=== PATIENT | male | born 1965 | race Caucasian/White ===

== ENCOUNTER 2017-06-08 05:19 | Day surgery (SDC) | payer MEDICAID ==
[~2017-06-08 05:19] MED LIST: COLACE50 MG/5 ML PO; CYCLOBENZAPRINE10 MG PO; MULTIPLE VITAMI1 TA1 PO; OXYCONTIN10 MG PO; ZANTAC300 MG PO
[2017-06-08] MEDS ORDERED: PERCOCET 5-3251 TAB PO (08:38)
[2017-06-08 08:57] VITALS: BP 136/84; BMI 30.1
--- NOTE | 2017-06-08 16:50 | NUR ---
PATIENT AMBULATES TO BATHROOM AND VOIDS LARGE AMOUNT IN TOILET. PIV DC'D WITH TIP INTACT. PATIENT DRESSING IN PERSONAL CLOTHING
--- NOTE | 2017-06-08 17:10 | NUR ---
DISCHARGE INSTRUCTIONS REVIEWED WITH PATIENT AND SPOUSE. DISCHARGED HOME VIA WHEELCHAIR TO PRIVATE VEHICLE WITH SPOUSE AND FRIEND
--- NOTE | 2017-06-10 09:17 | OP ---
PATIENT NAME: MONI MANDUJANO MEDICAL RECORD: [id number] :63 LOCATION:[facility] ADMISSION DATE: SURGEON: MARLEY GAXIOLA MD DATE OF OPERATION: 06/08/2017 PREOPERATIVE DIAGNOSES: Lumbar spinal stenosis with foraminal stenosis at L3-L4 and L4-L5, left. PROCEDURE: Lumbar laminectomy at L3-L4 and L4-L5 left with foraminotomy at L3-L4 left and L4-L5, left with METRx retractor and microscopic illumination. DESCRIPTION OF TECHNIQUE: After induction of general endotracheal anesthesia, the patient was rolled prone on chest and hip rolls. The lumbar spine was prepped and draped using the sterile fashion. Fluoroscopic x-ray and spinal needle localized the L4 pedicle. Next, a stab incision was created with #11 blade and series of dilators was used to advance the METRx retractor to the L4 pedicle. The METRx retractor was wanded superiorly to the L3-L4 interspace. A laminectomy was carried out with Midas-Gerard drill and microscope at this level. Next, the METRx retractor was wanded to the L4-L5 interspace. A laminectomy was carried out with Midas-Gerard drill and microscope as well. Hypertrophied ligamentum flavum was removed at L3-L4 and L4-L5 and foraminotomies were carried out at L3-L4 and L4-L5 on the left as well under microscopic illumination with Cloward rongeurs. Following this, the dura and the nerve roots are decompressed well at L3, L4, and L5. Meticulous hemostasis was maintained throughout the wound. The wound was irrigated with copious amounts of Ancef irrigant solution. The retractor was removed. The fascia was closed with 2-0 Vicryl suture, the subdermal layer was closed with 3-0 Vicryl suture. The skin was reapproximated with Dermabond mesh and glue. The patient was awakened in good condition and taken to recovery. All counts were reported as correct. Estimated blood loss was minimal. TRANSINT:[id number] Voice Confirmation ID: [id number] DOCUMENT ID: [id number] MARLEY GAXIOLA MD at 0917 CC: [id number] DICTATION DATE: 06/09/17 0739 SUPERVISOR PIPELINES: 06/09/17 1214 DEP SDC 06/08/17 [facility] [address] [place] [address]
== END 2017-06-08 17:10 | disposition home or self-care (01) ==
LOC: D.OPS 05:19 → D.PAN 09:30 → D.OPS 09:30
DX: M54.16 Radiculopathy, lumbar region (principal); M48.061 Spinal stenosis, lumbar region without neurogenic claudication; M54.5 Low back pain; Z01.812 Encounter for preprocedural laboratory examination

== ENCOUNTER 2018-01-19 20:30 | Emergency (ER) | payer MEDICAID ==
[~2018-01-19 20:30] MED LIST changes: +PERCOCET 5-3251 TAB PO
[2018-01-19 21:26] LABS: BASOPHILS 0.3 % (0-2); EOSINOPHILS 1.5 % (0-7); HEMATOCRIT 43.3 % (42.0-54.0); HEMOGLOBIN 14.5 g/dL (13.5-17.5); IMMATURE GRANULOCYTES 0.3 % (0-5); LYMPHOCYTES 44.8 % (15-50); MCHC 33.5 g/dL (31.0-37.0); MCV 92.7 fL (80.0-100.0); MONOCYTES 7.7 % (2-11); NEUTROPHILS 45.4 % (40-80); RBC 4.67 10x6/uL (4.20-6.10); RDW 12.3 % (11.5-14.5); WBC 6.6 10x3/uL (4.8-10.8)
[2018-01-19 21:28] LABS: APPEARANCE CLEAR (CLEAR); BILIRUBIN NEGATIVE (NEGATIVE); COLOR YELLOW (YELLOW); GLUCOSE NEGATIVE (NEGATIVE); KETONE NEGATIVE (NEGATIVE); NITRITE NEGATIVE (NEGATIVE); PROTEIN NEGATIVE (NEGATIVE); SPECIFIC GRAVITY 1.015 (1.005-1.020); UROBILINOGEN NORMAL (NORMAL)
[2018-01-19 21:28] LABS: PLATELET COUNT 224 10x3/uL (130-400)
[2018-01-19 21:45] LABS: ALBUMIN 3.7 g/dL (3.4-5.0); BILIRUBIN - TOTAL 0.7 mg/dL (0.2-1.3); CALCIUM 8.8 mg/dL (8.5-10.1); CREATININE - SERUM 1.1 mg/dL (0.6-1.3); PROTEIN - SERUM 7.2 g/dL (6.4-8.2)
[2018-01-19 22:14] LABS: AMYLASE - SERUM 85 U/L (25-115); LIPASE 309 U/L (73-393)
== END 2018-01-20 02:15 | disposition home or self-care (01) ==
LOC: D.ER 20:30
PROVIDERS: Family Medicine
DX: R10.12 Left upper quadrant pain (principal)

== ENCOUNTER 2018-01-21 23:40 | Emergency (ER) | payer MEDICARE ==
[2018-01-22 01:02] LABS: BASOPHILS 0.2 % (0-2); HEMATOCRIT 39.3 % (42.0-54.0); HEMOGLOBIN 13.2 g/dL (13.5-17.5); IMMATURE GRANULOCYTES 0.2 % (0-5); LYMPHOCYTES 42.4 % (15-50); MCH 30.5 pg (26.0-34.0); MCHC 33.6 g/dL (31.0-37.0); MCV 90.8 fL (80.0-100.0); MEAN PLATELET VOLUME 10.6 fL (7.4-10.4); MONOCYTES 6.4 % (2-11); NEUTROPHILS 48.8 % (40-80); PLATELET COUNT 202 10x3/uL (130-400); RBC 4.33 10x6/uL (4.20-6.10); RDW 12.2 % (11.5-14.5); WBC 6.6 10x3/uL (4.8-10.8)
[2018-01-22 01:08] LABS: UDS - AMPHET NEGATIVE QUAL (NEGATIVE); UDS - BARB NEGATIVE QUAL (NEGATIVE); UDS - BENZO NEGATIVE QUAL (NEGATIVE); UDS - COCAINE NEGATIVE QUAL (NEGATIVE); UDS - OPIATE NEGATIVE QUAL (NEGATIVE); UDS - PCP NEGATIVE QUAL (NEGATIVE); UDS - THC NEGATIVE QUAL (NEGATIVE)
[2018-01-22 01:38] LABS: ALBUMIN 3.4 g/dL (3.4-5.0); ALKALINE PHOSPHATASE 72 U/L (46-116); ALT (SGPT) 40 U/L (10-68); CALC OSMOLALITY 279 mosm/kg (275-300); CALCIUM 8.5 mg/dL (8.5-10.1); CARBON DIOXIDE 27.8 mmol/L (21.0-32.0); CHLORIDE - SERUM 106 mmol/L (98-107); CREATININE - SERUM 1.1 mg/dL (0.6-1.3); GLUCOSE 96 mg/dL (74-106); PROTEIN - SERUM 6.7 g/dL (6.4-8.2); SODIUM 139 mmol/L (136-145); UREA NITROGEN 19 mg/dL (7-18); eGFR NON AFRICAN AMERICAN 74 mL/min (90-120)
[2018-01-22 01:42] LABS: AMYLASE - SERUM 89 U/L (25-115); LIPASE 366 U/L (73-393); THYROID STIMULATING HORMONE 7.54 uIU/mL (0.36-3.74); TROPONIN-I < 0.017 ng/mL (0.000-0.060)
== END 2018-01-22 04:13 | disposition home or self-care (01) ==
LOC: D.ER 23:40
PROVIDERS: Family Medicine
DX: F11.23 Opioid dependence with withdrawal (principal); E03.9 Hypothyroidism, unspecified

== ENCOUNTER → 2018-07-25 14:23 | Outpatient (CLI) | payer MEDICARE | END | disposition home or self-care (01) | LOC: D.LABREF 14:23 | DX: M17.11 Unilateral primary osteoarthritis, right knee (principal); Z11.8 Encounter for screening for other infectious and parasitic diseases ==

== ENCOUNTER → 2018-07-26 12:04 | Outpatient (CLI) | payer MEDICARE | END | disposition home or self-care (01) | LOC: D.LABREF 12:04 | DX: M17.12 Unilateral primary osteoarthritis, left knee (principal); Z11.8 Encounter for screening for other infectious and parasitic diseases ==

== ENCOUNTER 2018-08-17 10:00 | Inpatient (IN) | payer MEDICARE ==
[~2018-08-17] VITALS: Ht 182.9 cm; Wt 97.3 kg
--- NOTE | ~2018-08-17 | MORECARE ---
CASE MANAGEMENT DISCHARGE SUMMARY PATIENT: MONI MANDUJANO JOSEPH UNIT: [id number] ADM DATE: 08/23/18 AGE: 53 : 63 SEX: M ROOM/BED: D.2212 AUTHOR: KAREN ESPINOZA PHYSICIAN: REFERRING PHYSICIAN: MENDEL BOB DO DATE OF SERVICE: 08/24/18 Discharge Plan Patient Name: MONI MANDUJANO Facility: [facility]:[place] : 1965 Planned Disposition: Anticipated Discharge Date: Discharge Date: Expected LOS: Initial Reviewer: [email or web address] Initial Review Date: 08/23/2018 Generated: 08/24/18 12:19 pm Comments DCP- Discharge Planning Updated by [email or web address]: Jeanette Dailey on 08/24/18 10:[address] PATIENT IS CONCERNED ABOUT PT AND THE HOLIDAYS. OP PT IS SET UP FOR WednesdayAug AT 7:45 AM, SPOKE WITH HUMBERTO AT [facility] IN [place] CM WILL CONTINUE TO FOLLOW AND ASSIST WITH DC PLANNING External [facility]iders [facility] Next Contact Date: Service Request Date: Service Type: Resolution: Reviewer: Comments: Patient Name: MONI MANDUJANO Page [phone] at 1120 All edits/amendments must be made on the electronic document DICTATION DATE: 08/24/18 111 SUPERVISOR LANDSCAPE: LA NENA 08/24/18 1119 RPT#: [id number] DC DATE: STATUS: ADM IN [facility] [address] [place] [address] END OF REPORT
--- NOTE | ~2018-08-17 | MORECARE ---
CASE MANAGEMENT DISCHARGE SUMMARY PATIENT: MONI MANDUJANO UNIT: [id number] ADM DATE: 08/23/18 AGE: 53 : 63 SEX: M ROOM/BED: D.2212 AUTHOR: KAREN ESPINOZA PHYSICIAN: REFERRING PHYSICIAN: MENDEL BOB DO DATE OF SERVICE: 08/25/18 Discharge Plan Patient Name: MONI MANDUJANO Facility: [facility]:[place] : 1965 Planned Disposition: Home Anticipated Discharge Date: Discharge Date: Expected LOS: Initial Reviewer: [email or web address] Initial Review Date: 08/23/2018 Generated: 08/25/18 1:17 pm Comments DCP- Discharge Planning Updated by [email or web address]: Jeanette Dailey on 08/24/18 10:[address] PATIENT IS CONCERNED ABOUT PT AND THE HOLIDAYS. OP PT IS SET UP FOR WednesdayAug AT 7:45 AM, SPOKE WITH HUMBERTO AT [facility] IN [place] CM WILL CONTINUE TO FOLLOW AND ASSIST WITH DC PLANNING Last DP export: 08/24/18 10:20 Patient Name: MONI MANDUJANO Page 25112 at 1217 All edits/amendments must be made on the electronic document DICTATION DATE: 08/25/18 1217 STAFF TRAINER: LA NENA 08/25/18 1217 RPT#: [id number] DC DATE: STATUS: ADM IN [facility] [address] [place] [address] END OF REPORT
--- NOTE | ~2018-08-17 | MORECARE ---
CASE MANAGEMENT DISCHARGE SUMMARY PATIENT: MONI MANDUJANO UNIT: [id number] ADM DATE: 08/23/18 AGE: 53 : 63 SEX: M ROOM/BED: D.2212 AUTHOR: KAREN ESPINOZA PHYSICIAN: REFERRING PHYSICIAN: MENDEL BOB DO DATE OF SERVICE: 08/25/18 Discharge Plan Patient Name: MONI MANDUJANO Facility: [facility]:[place] : 1965 Planned Disposition: Home Anticipated Discharge Date: Discharge Date: Expected LOS: Initial Reviewer: [id number] Initial Review Date: 08/23/2018 Generated: 08/25/18 1:34 pm Comments DCP- Discharge Planning Updated by [email or web address]: Jeanette Dailey on 08/24/18 10:[address] PATIENT IS CONCERNED ABOUT PT AND THE HOLIDAYS. OP PT IS SET UP FOR WednesdayAug AT 7:45 AM, SPOKE WITH HUMBERTO AT [facility] IN [place] CM WILL CONTINUE TO FOLLOW AND ASSIST WITH DC PLANNING DCPIA - Discharge Planning Initial Assessment Updated by [email or web address]: Jeanette Dailey on 08/25/18 12:27 pm * Is the patient Alert and Oriented? Yes * How many steps to enter\exit or inside your home? * PCP pearl * Pharmacy [facility] * Preadmission Environment Home with Family * ADLs Independent * Equipment Bedside Commode Rolling Walker * Other Equipment cpm ice machine * List name and contact numbers for known caregivers / representatives who currently or will assist patient after discharge: Dara [phone] * Verbal permission to speak to the caregivers and representatives has been obtained from the patient. N/A * Community resources currently utilized None * Additional services required to return to the preadmission environment? Yes * Can the patient safely return to the preadmission environment? Yes * Has this patient been hospitalized within the prior 30 days at any hospital? No Last DP export: 08/25/18 11:17 Patient Name: MONI MANDUJANO Page [id number] at 1234 All edits/amendments must be made on the electronic document DICTATION DATE: 08/25/18 1234 CYTOTECHNOLOGIST/CYTOLOGY SUPERVISOR: DM 08/25/18 1234 RPT#: [id number] DC DATE: STATUS: ADM IN [facility] [address] [place] [address] END OF REPORT
--- NOTE | ~2018-08-17 | MORECARE ---
CASE MANAGEMENT DISCHARGE SUMMARY PATIENT: MONI MANDUJANO UNIT: [id number] ADM DATE: 08/23/18 AGE: 53 : 63 SEX: M ROOM/BED: D.2212 AUTHOR: KAREN ESPINOZA PHYSICIAN: REFERRING PHYSICIAN: MENDEL BOB DO DATE OF SERVICE: 08/26/18 Discharge Plan Patient Name: MONI MANDUJANO Facility: [facility]:[place] : 1965 Planned Disposition: Home Anticipated Discharge Date: Discharge Date: Expected LOS: Initial Reviewer: [email or web address] Initial Review Date: 08/23/2018 Generated: 08/26/18 11:30 am Comments DCP- Discharge Planning Updated by [email or web address]: Jeanette Dailey on 08/26/18 9:[address] CM HAD TO CHANGE PATIENT'S OP PT APPOINTMENT TO Aug @1:45 PT WENT OVER HOME EXERCISES FOR HIM TO DUE TILL HE COULD GET TO PT. THIS IS THE PATIENT'S ONLY OPTION FROM WHERE HE LIVES. IMM SERVED AND EXPLAINED. CM WILL CONTINUE TO FOLLOW AND ASSIST WITH DC PLANNING NEEDED DCP- Discharge Planning Updated by [email or web address]: Jeanette Dailey on 08/25/18 11:[address] Patient Name: MONI MANDUJANO Admission Status: Elective Accout number: [id number] Admission Date: 08-23-2018 : 1965 Admission Diagnosis: Attending: MENDEL BOB Current LOS: 2 Anticipated DC Date: Planned Disposition: Home Primary Insurance: [employer] ADV Discharge Planning Comments: CM met with patient to assess discharge planning needs. Patient lives independently at home and plans to return there at discharge. There are 3 steps to his home. He states his Manager Quantitative will be the one to take him home. He has a walker, BSC, Ice machine and CPM delivered to his home. Patients PT is set up. CM will continue to follow and assist with DC planning needs Wheel Tuner: Jeanette Dailey DCP- Discharge Planning Updated by [email or web address]: Jeanette Dailey on 08/24/18 10:[address] PATIENT IS CONCERNED ABOUT PT AND THE HOLIDAYS. OP PT IS SET UP FOR WednesdayAug AT 7:45 AM, SPOKE WITH HUMBERTO AT [facility] IN [place] CM WILL CONTINUE TO FOLLOW AND ASSIST WITH DC PLANNING DCPIA - Discharge Planning Initial Assessment Updated by [email or web address]: Jeanette Dailey on 08/25/18 12:27 pm * Is the patient Alert and Oriented? Yes * How many steps to enter\exit or inside your home? * PCP pearl * Pharmacy [facility] * Preadmission Environment Home with Family * ADLs Independent * Equipment Bedside Commode Rolling Walker * Other Equipment cpm ice machine * List name and contact numbers for known caregivers / representatives who currently or will assist patient after discharge: Dara [phone] * Verbal permission to speak to the caregivers and representatives has been obtained from the patient. N/A * Community resources currently utilized None * Additional services required to return to the preadmission environment? Yes * Can the patient safely return to the preadmission environment? Yes * Has this patient been hospitalized within the prior 30 days at any hospital? No Coverage Notice Reviewer: [email or web address] - Jeanette Dailey Notice Issued Date-Time: 08/26/2018 10:27 Notice Type: IM Discharge Notice Notice Delivered To: Patient Relationship to Patient: Locum Tenens Psychiatrist Name: Delivery Method: HAND - Hand Delivered Eva Days: Prior Verbal Notification: Recipient Understood Notice: Yes Recipient Signature: Yes Med Rec Note Co-signed by Attending: Coverage Notice Comment: Last DP export: 08/25/18 11:42 Patient Name: MONI MANDUJANO Page [id number] at 1031 All edits/amendments must be made on the electronic document DICTATION DATE: 08/26/18 1030 CHARGE ENTRY SPECIALIST: LA NENA 08/26/18 1030 RPT#: [id number] DC DATE: STATUS: ADM IN [facility] [address] [place] [address] END OF REPORT
--- NOTE | ~2018-08-17 | MORECARE ---
CASE MANAGEMENT DISCHARGE SUMMARY PATIENT: MONI MANDUJANO UNIT: [id number] ADM DATE: 08/23/18 AGE: 53 : 63 SEX: M ROOM/BED: D.2212 AUTHOR: KAREN ESPINOZA PHYSICIAN: REFERRING PHYSICIAN: MENDEL BOB DO DATE OF SERVICE: 08/26/18 Discharge Plan Patient Name: MONI MANDUJANO Facility: [facility]:[place] : 1965 Planned Disposition: Home Anticipated Discharge Date: Discharge Date: 08/26/2018 Expected LOS: Initial Reviewer: [email or web address] Initial Review Date: 08/23/2018 Generated: 08/26/18 1:19 pm Comments DCP- Discharge Planning Updated by [email or web address]: Jeanette Dailey on 08/26/18 9:[address] CM HAD TO CHANGE PATIENT'S OP PT APPOINTMENT TO Aug @1:45 PT WENT OVER HOME EXERCISES FOR HIM TO DUE TILL HE COULD GET TO PT. THIS IS THE PATIENT'S ONLY OPTION FROM WHERE HE LIVES. IMM SERVED AND EXPLAINED. CM WILL CONTINUE TO FOLLOW AND ASSIST WITH DC PLANNING NEEDED DCP- Discharge Planning Updated by [email or web address]: Jeanette Dailey on 08/25/18 11:[address] Patient Name: MONI MANDUJANO Admission Status: Elective Accout number: [id number] Admission Date: 08-23-2018 : 1965 Admission Diagnosis: Attending: MENDEL BOB Current LOS: 2 Anticipated DC Date: Planned Disposition: Home Primary Insurance: [employer]ICARE ADV Discharge Planning Comments: CM met with patient to assess discharge planning needs. Patient lives independently at home and plans to return there at discharge. There are 3 steps to his home. He states his Ice Cream Machine Operator will be the one to take him home. He has a walker, BSC, Ice machine and CPM delivered to his home. Patients PT is set up. CM will continue to follow and assist with DC planning needs Catalyst Manufacturing Operator: Jeanette Dailey DCP- Discharge Planning Updated by [email or web address]: Jeanette Dailey on 08/24/18 10:[address] PATIENT IS CONCERNED ABOUT PT AND THE HOLIDAYS. OP PT IS SET UP FOR WednesdayAug AT 7:45 AM, SPOKE WITH HUMBERTO AT [facility] IN [place] CM WILL CONTINUE TO FOLLOW AND ASSIST WITH DC PLANNING DCPIA - Discharge Planning Initial Assessment Updated by [email or web address]: Jeanette Dailey on 08/25/18 12:27 pm * Is the patient Alert and Oriented? Yes * How many steps to enter\exit or inside your home? * PCP pearl * Pharmacy [facility] * Preadmission Environment Home with Family * ADLs Independent * Equipment Bedside Commode Rolling Walker * Other Equipment cpm ice machine * List name and contact numbers for known caregivers / representatives who currently or will assist patient after discharge: Dara [phone] * Verbal permission to speak to the caregivers and representatives has been obtained from the patient. N/A * Community resources currently utilized None * Additional services required to return to the preadmission environment? Yes * Can the patient safely return to the preadmission environment? Yes * Has this patient been hospitalized within the prior 30 days at any hospital? No Coverage Notice Reviewer: [id number] - Jeanette Dailey Notice Issued Date-Time: 08/26/2018 10:27 Notice Type: IM Discharge Notice Notice Delivered To: Patient Relationship to Patient: Urologist Name: Delivery Method: HAND - Hand Delivered Eva Days: Prior Verbal Notification: Recipient Understood Notice: Yes Recipient Signature: Yes Med Rec Note Co-signed by Attending: Coverage Notice Comment: Last DP export: 08/26/18 9:31 Patient Name: MONI MANDUJANO Page 81098 at 1219 All edits/amendments must be made on the electronic document DICTATION DATE: 08/26/181217 SIZE STAMPER: LA NENA 08/26/181217 RPT#: [id number] DC DATE:08/26/18 STATUS: DIS IN [facility] [address] [place] [address] END OF REPORT
--- NOTE | ~2018-08-17 | MORECARE ---
CASE MANAGEMENT DISCHARGE SUMMARY PATIENT: MONI MANDUJANO UNIT: [id number] ADM DATE: 08/23/18 AGE: 53 : 63 SEX: M ROOM/BED: D.2212 AUTHOR: KAREN ESPINOZA PHYSICIAN: REFERRING PHYSICIAN: MENDEL BOB DO DATE OF SERVICE: 08/25/18 Discharge Plan Patient Name: MONI MANDUJANO Facility: [facility]:[place] : 1965 Planned Disposition: Home Anticipated Discharge Date: Discharge Date: Expected LOS: Initial Reviewer: [email or web address] Initial Review Date: 08/23/2018 Generated: 08/25/18 1:42 pm Comments DCP- Discharge Planning Updated by [email or web address]: Jeanette Dailey on 08/25/18 11:[address] Patient Name: MONI MANDUJANO Admission Status: Elective Accout number: [id number] Admission Date: 08-23-2018 : 1965 Admission Diagnosis: Attending: MENDEL BOB Current LOS: 2 Anticipated DC Date: Planned Disposition: Home Primary Insurance: [employer] ADV Discharge Planning Comments: CM met with patient to assess discharge planning needs. Patient lives independently at home and plans to return there at discharge. There are 3 steps to his home. He states his Architecture Drafter will be the one to take him home. He has a walker, BSC, Ice machine and CPM delivered to his home. Patients PT is set up. CM will continue to follow and assist with DC planning needs Dowel Inspector: Jeanette Dailey DCP- Discharge Planning Updated by [email or web address]: Jeanette Dailey on 08/24/18 10:[address] PATIENT IS CONCERNED ABOUT PT AND THE HOLIDAYS. OP PT IS SET UP FOR WednesdayAug AT 7:45 AM, SPOKE WITH HUMBERTO AT [facility] IN [place] CM WILL CONTINUE TO FOLLOW AND ASSIST WITH DC PLANNING DCPIA - Discharge Planning Initial Assessment Updated by [email or web address]: Jeanette Dailey on 08/25/18 12:27 pm * Is the patient Alert and Oriented? Yes * How many steps to enter\exit or inside your home? * PCP pearl * Pharmacy [facility] * Preadmission Environment Home with Family * ADLs Independent * Equipment Bedside Commode Rolling Walker * Other Equipment cpm ice machine * List name and contact numbers for known caregivers / representatives who currently or will assist patient after discharge: Dara [phone] * Verbal permission to speak to the caregivers and representatives has been obtained from the patient. N/A * Community resources currently utilized None * Additional services required to return to the preadmission environment? Yes * Can the patient safely return to the preadmission environment? Yes * Has this patient been hospitalized within the prior 30 days at any hospital? No Last DP export: 08/25/18 11:34 Patient Name: MONI MANDUJANO Page 89122 at 1242 All edits/amendments must be made on the electronic document DICTATION DATE: 08/25/18 1242 TOBACCO WETTER: LA NENA 08/25/18 1242 RPT#: [id number] DC DATE: STATUS: ADM IN [facility] [address] [place] [address] END OF REPORT
--- NOTE | ~2018-08-17 | OP ---
PATIENT NAME: MONI ELIZONDO MEDICAL RECORD: [id number] :63 LOCATION:D.[facility] [place] ADMISSION DATE:08/23/18 SURGEON: PAOLO BOB DO DATE OF OPERATION: 08/23/2018 PROCEDURE PERFORMED: Left total knee arthroplasty. PREOPERATIVE DIAGNOSIS: Severe end-stage left knee arthritis. POSTOPERATIVE DIAGNOSIS: Severe end-stage left knee arthritis. SURGEON: Paolo Bob DO STUDIO CAMERA OPERATOR: Jeremías Crump, KEO - He held the retractors and passed and helped and assisted with skin closure. INDICATIONS: Mr. Elizondo is a 53-year-old male who presented to my office having had injections in his knees for quite some time. The cortisone injections did not help. They did at first, but then the effects wore off. He said he had problems with his knee for some time and then started affecting his activities of daily living. Once we got to that point, he decided he wants something done surgically and he had injections already. I informed of the risks and benefits of a total knee and he thought about it for some time and decided he wanted to have it done. The risks including infection, bleeding, damage to nerve and vessel, need for further surgery, blood clots, and even . He was okay with those risks and consented to the procedure. DESCRIPTION OF PROCEDURE: Once the patient was consented, he was taken to the operative suite and after having a block by anesthesia. A timeout was performed, everyone was in agreement with the correct side, site, patient and procedure. The left lower extremity was then prepped and draped in a sterile fashion. Once he was prepped and draped, the time-out had been performed. Incision was marked out on the anterior knee and then covered with Ioban. A #10 blade scalpel was then used to incise the skin down to the capsule and all coagulation was done with the Aquamantys. The tourniquet was not used. Once the capsule was cleaned out, a new #10 blade scalpel was used. A medial parapatellar incision was then made through the capsule. The patella was then everted. Fat pad was partially removed. The patella was milled down to fit a #37 patella. After that had been drilled, the knee was flexed up and the femoral canal was entered with a drill. I then irrigated with Asepto and suctioned. The guide was then placed into the femur and distal femur was cut. Once the femur had been cut, the tibia was exposed and 4 mm was taken off the tibia using a guide. The knee was then brought in extension and the menisci and the bone fragments were removed at that time and all coagulation was done with the Aquamantys at that time of any bleeders. The extension block was then put in and it fit very well. The knee was then flexed up and the femur was measured and measured to be 75, had a nice fit. Then, the 75 cutting block 4-in-1 cutting block was used to cut the femur. The trial was then placed. Had good coverage of the femur. The tibial tray was floated in cycles and rotation was marked. This tibial tray was then removed and the patella was drilled for the implant. The 3 peg holes and then the lug holes for the femoral were drilled at that time too. The tibia was then exposed and sized to be 79. This was drilled and punched and cement was mixed and put on the tibial tray itself and into the tibia and was impacted into OPERATIVE REPORT [id number] [facility]. Excess cement was removed with a Stevens. The femur was then put on and the 10 poly was put in between. The knee was brought to extension and the patella was then put on as well with cement on the patella and on the patellar implant. The screws were held in place while the cement dried and the knee was thoroughly irrigated at that time. Once that cement had dried, a 12 poly was trialed and this seemed to fit very well, had full range of motion of the knee with no laxity in mid flexion or deep flexion or extension. The implant was then put into place and the patellar locking mechanism was put on. Knee was then irrigated again and Surgicel beads were placed in the gutters as well as tobramycin, vancomycin powder and the capsule was closed with #2 Ethibond in a vohejb-re-vbxrl fashion. The rest of the powders were put on top of the capsule at that time and the skin was closed with 2-0 Vicryl in an interrupted fashion. ZipLine was placed on the knee. Adaptic, 4 x 4s, ABD, Webril, and Terence wrap were then placed on the knee and TERRIE hose stockinette up to the knee. The patient was awakened and taken to the recovery in stable condition. COMPLICATIONS: None. ESTIMATED BLOOD LOSS: Approximately 200 mL. TRANSINT:[id number] Voice Confirmation ID: [id number] DOCUMENT ID: [id number] PAOLO BOB DO at 0721 CC: [id number] DICTATION DATE: 08/23/18 1549 GREEN INSPECTOR: 08/23/18 2236 ADM IN [facility] [id number] [place] [address]
[~2018-08-17 10:00] MED LIST changes: +ACETAMINOPHEN500 M1 PO; +CBD OIL PO; +NEURONTIN 300300 MG PO; +ROBAXIN500 MG PO
[2018-08-17 12:02] LABS: BASOPHILS 0.2 % (0-2); HEMATOCRIT 43.9 % (42.0-54.0); HEMOGLOBIN 14.8 g/dL (13.5-17.5); IMMATURE GRANULOCYTES 0.2 % (0-5); LYMPHOCYTES 39.7 % (15-50); MCH 31.2 pg (26.0-34.0); MCHC 33.7 g/dL (31.0-37.0); MCV 92.4 fL (80.0-100.0); MEAN PLATELET VOLUME 11.3 fL (7.4-10.4); MONOCYTES 7.9 % (2-11); PLATELET COUNT 190 10x3/uL (130-400); RBC 4.75 10x6/uL (4.20-6.10); RDW 12.7 % (11.5-14.5); WBC 4.2 10x3/uL (4.8-10.8)
[2018-08-17 12:03] LABS: APPEARANCE CLEAR (CLEAR); BILIRUBIN NEGATIVE (NEGATIVE); COLOR YELLOW (YELLOW); GLUCOSE NEGATIVE (NEGATIVE); KETONE NEGATIVE (NEGATIVE); NITRITE NEGATIVE (NEGATIVE); PROTEIN NEGATIVE (NEGATIVE); SPECIFIC GRAVITY 1.015 (1.005-1.020); UROBILINOGEN NORMAL (NORMAL)
[2018-08-17 12:08] LABS: APTT 33.1 SECONDS (22.8-39.4); INR 0.99 (0.85-1.17); PROTIME 12.6 SECONDS (11.6-15.0)
[2018-08-17 12:14] LABS: CALCIUM 8.6 mg/dL (8.5-10.1); CARBON DIOXIDE 29.2 mmol/L (21.0-32.0); CREATININE - SERUM 1.1 mg/dL (0.6-1.3); POTASSIUM - SERUM 4.2 mmol/L (3.5-5.1)
[2018-08-23] VITALS (7 sets, daily range): BP systolic 109–133; BP diastolic 58–83; Ht 182.9 cm; Wt 97.3 kg
[2018-08-24] VITALS: BP 97/55
[2018-08-24 04:00] VITALS: BP 108/57
[2018-08-24 04:58] LABS: HEMATOCRIT 35.2 % (42.0-54.0); HEMOGLOBIN 11.4 g/dL (13.5-17.5); MCH 29.9 pg (26.0-34.0); MCHC 32.4 g/dL (31.0-37.0); MCV 92.4 fL (80.0-100.0); MEAN PLATELET VOLUME 11.2 fL (7.4-10.4); RBC 3.81 10x6/uL (4.20-6.10); RDW 12.6 % (11.5-14.5); WBC 6.1 10x3/uL (4.8-10.8)
[2018-08-24 08:34] VITALS: BP 110/68
[2018-08-24 12:46] VITALS: BP 123/68
[2018-08-24 16:45] VITALS: BP 121/72
[2018-08-24 20:00] VITALS: BP 118/70
[2018-08-25 04:00] VITALS: BP 131/83
[2018-08-25 05:12] LABS: HEMATOCRIT 36.3 % (42.0-54.0); HEMOGLOBIN 12.1 g/dL (13.5-17.5); MCH 30.8 pg (26.0-34.0); MCHC 33.3 g/dL (31.0-37.0); MCV 92.4 fL (80.0-100.0); MEAN PLATELET VOLUME 11.3 fL (7.4-10.4); RBC 3.93 10x6/uL (4.20-6.10); RDW 12.9 % (11.5-14.5); WBC 6.3 10x3/uL (4.8-10.8)
[2018-08-25 09:01] VITALS: BP 113/82
[2018-08-25 14:22] VITALS: BP 115/66
[2018-08-25 16:26] VITALS: BP 118/76
[2018-08-25 19:48] VITALS: BP 116/73
[2018-08-26] VITALS: BP 121/77
[2018-08-26 01:03] VITALS: BP 141/46
[2018-08-26 04:00] VITALS: BP 140/72
[2018-08-26] MEDS ORDERED: OXYCODONE HCL5 M1 PO (07:40)
[2018-08-26] MEDS ORDERED: VISTARIL50 MG PO (07:40)
[2018-08-26] MEDS ORDERED: BAYER CHEWABLE81 MG PO (07:40)
[2018-08-26] MEDS ORDERED: KEFLEX500 MG PO (07:41)
[2018-08-26 08:47] VITALS: BP 110/64
== END 2018-08-26 11:25 | disposition home or self-care (01) | DRG 470 ==
LOC: D.SDCHOLD 10:00 → D.MS 08-23 11:45 → D.SDCHOLD 08-23 13:30 → D.MS 08-23 16:46 → D.OPS 09-13 07:30 → D.PAN 09-13 07:30 → EDSTATUS 09-13 07:30
PROVIDERS: Orthopaedic Surgery
PROC: 0SRD06Z Replacement of Left Knee Joint with Oxidized Zirconium on Polyethylene Synthetic Substitute, Open Approach (ICD-10-PCS; principal; 2018-08-23 13:30)
DX: M17.12 Unilateral primary osteoarthritis, left knee (principal); G89.4 Chronic pain syndrome; K21.9 Gastro-esophageal reflux disease without esophagitis; Z72.0 Tobacco use

== ENCOUNTER → 2019-01-17 16:49 | Outpatient (CLI) | payer MEDICARE ==
[2018-08-23 16:52] VITALS: BMI 29.1
[~2019-01-17 16:49] MED LIST changes: +BAYER CHEWABLE81 MG PO; +KEFLEX500 MG PO; +OXYCODONE HCL5 M1 PO; +VISTARIL50 MG PO
[2019-01-17 17:56] LABS: PROTEIN - BODY FLUID 6.2 G/DL
[2019-01-17 19:48] LABS: MACROPHAGES BF 23 %; MESOTHELIALS BF 4 %; NEUT - BF 19 %
== END | disposition home or self-care (01) ==
LOC: D.LABREF 16:49
PROVIDERS: ATTEND Orthopaedic Surgery
DX: M25.562 Pain in left knee (principal)

== ENCOUNTER → 2019-03-24 12:51 | Outpatient (CLI) | payer MEDICARE ==
[2018-08-23 16:52] VITALS: BMI 29.1
== END | disposition home or self-care (01) ==
LOC: D.MRI 12:51
PROVIDERS: ATTEND Orthopaedic Surgery
DX: M54.16 Radiculopathy, lumbar region (principal)

== ENCOUNTER → 2019-04-28 08:17 | Outpatient (CLI) | payer MEDICARE ==
[2018-08-23 16:52] VITALS: BMI 29.1
== END | disposition home or self-care (01) ==
LOC: D.RAD 08:17
PROVIDERS: ATTEND Emergency Medicine
DX: R13.10 Dysphagia, unspecified (principal)